=== PATIENT | female | born 1995 | race Caucasian/White ===

== ENCOUNTER 2017-06-09 21:07 | Emergency (ER) | payer OTHER ==
[2017-06-09 21:15] VITALS: BP 119/85
[2017-06-09] MEDS ORDERED: POLYMYXIN B/TRIMETH OPHTH DROPS RIGHTEYE STA (21:18)
[2017-06-09] MEDS ORDERED: PROPARACAINE 0.5% OPHTH DROPS 15 ML RIGHTEYE STA (21:18)
--- NOTE | 2017-06-09 21:31 | ED Physician Documentation ---
PD HPI OPHTHO - Stated complaint Stated Complaint: EYE PX - Chief complaint Chief Complaint: Heent - History obtained from History obtained from: Patient, Friend - History of Present Illness Timing - onset: Yesterday Timing - details: Gradual onset, Still present Location: Right Quality / character: Burning, Aching Associated symptoms: Redness, Tearing Contributing factors: No: Recent URI, UV light (welding etc), Chemical exposure , acid Similar symptoms before: Has not had sx before Recently seen: Not recently seen - Additional information Additional information: Patient is a 22 year old female with no significant past medical history who is presenting to the emergency department for right eye pain. patient states that she was in the shower last night and was rubbing her eye and today she has had pain, clear discharge from her right eye. Review of Systems Constitutional: denies: Fever, Chills Eyes: reports: Photophobia, Irritation Ears: denies: Ear pain, Drainage/discharge Nose: reports: Reviewed and negative Throat: reports: Reviewed and negative Cardiac: reports: Reviewed and negative Respiratory: reports: Reviewed and negative GI: reports: Reviewed and negative : reports: Reviewed and negative Skin: reports: Reviewed and negative Musculoskeletal: reports: Reviewed and negative Neurologic: denies: Headache, Head injury, LOC Psychiatric: reports: Reviewed and negative Immunocompromised: denies: Immunocompromised PD PAST MEDICAL HISTORY - Past Medical History Past Medical History: Yes Cardiovascular: None Respiratory: Asthma Neuro: None Endocrine/Autoimmune: None GI: None EMPLOYMENT ADJUDICATOR: None : None HEENT: None Psych: None Musculoskeletal: None Derm: None - Past Surgical History Past Surgical History: No - Allergies Allergies/Adverse Reactions: Allergies Allergy/AdvReac Type Severity Reaction Status Date / Time No Known Drug Allergies Allergy Verified 06/09/17 21:18 - Social History Does the pt smoke?: No Smoking Status: Never smoker Does the pt drink ETOH?: No Does the pt have substance abuse?: No - Immunizations Immunizations are current?: Yes - POLST Patient has POLST: No PD ED PE NORMAL - Vitals Vital signs reviewed: Yes - General General: Alert and oriented X 3, No acute distress, Well developed/nourished - HEENT HEENT: Atraumatic, Moist mucous membranes - Neck Neck: Supple, no meningeal sign - Cardiac Cardiac: RRR - Respiratory Respiratory: No respiratory distress - Abdomen Abdomen: Soft - Derm Derm: Normal color, Warm and dry - Extremities Extremities: No deformity - Neuro Neuro: Alert and oriented X 3, No motor deficit, No sensory deficit, Normal speech Eye Opening: Spontaneous Motor: Obeys Commands Verbal: Oriented GCS Score: 15 - Psych Psych: Normal mood PD ED PE EXPANDED - Eyes Eyes: No eyelid FB (everted), Injected conj/sclera. No: Exudate, Corneal FB, Corneal abrasion, Corneal ulcer, Fluorescein uptake Results - Vitals Vitals: Vital Signs - 24 hr 06/09/17 21:13 Temperature 36.4 C L Heart Rate 87 Respiratory 18 Rate Blood Pressure 119/85 H O2 Saturation 98 Oxygen O2 Source Room air PD MEDICAL DECISION MAKING - ED course Complexity details: reviewed old records, reviewed results, re-evaluated patient , considered differential, d/w patient ED course: Patient was seen and examined at bedside. eye was viewed but there was no abrasion. Patient was started on polytrim. patient required no further work up at this time and was stable for discharge with outpatient follow up. Departure - Departure Disposition: 01 Home, Self Care Clinical Impression: Conjunctivitis, right eye Condition: Good Instructions: Red Eye Tx Follow-Up: Sailaja Simms ARNP [Primary Care Provider] - As Needed Comments: there is no abrasion on the eye today but it is irritated. You have been started on antibiotic drops and you will take them 4 times a day. You should take motrin or tylenol as needed for pain. You should follow up with your doctor if your symptoms don't improve. You should not wear your contacts. You may return to the emergency department at any time for new, worsening or uncontrollable symptoms. Discharge Date/Time: 06/09/17 21:35
== END 2017-06-09 21:35 | disposition home or self-care (01) ==
LOC: ED 21:07
DX: H10.9 Unspecified conjunctivitis (principal)
CPT/HCPCS: 99283; A9270; J3490